=== PATIENT | female | born 1990 | race Caucasian/White ===

== ENCOUNTER 2017-11-13 14:08 | Emergency (ER) | payer SELFPAY ==
[~2017-11-13] VITALS: Ht 172.7 cm; Wt 61.4 kg
[2017-11-13 14:15] VITALS: BP 112/58; TEMP 98.7
[2017-11-13 15:05] VITALS: PULSE 69
== END 2017-11-13 15:06 | disposition home or self-care (01) ==
LOC: COL.ER 14:08
DX: S99.912A Unspecified injury of left ankle, initial encounter (principal); S93.402A Sprain of unspecified ligament of left ankle, initial encounter; X50.1XXA Overexertion from prolonged static or awkward postures, initial encounter; Y99.0 Civilian activity done for income or pay

== ENCOUNTER 2021-05-05 17:08 | Emergency (ER) | payer OTHER ==
[~2021-05-05] VITALS: Ht 167.6 cm; Wt 77.3 kg
[2021-05-05 17:17] VITALS: TEMP 97.6
[2021-05-05 18:19] LABS: HEMOGLOBIN 10.7 g/dl (12.5-16.0); MEAN CELL VOLUME 87 fl (80.0-100.0); MEAN CORPUSCULAR HEMOGLOBIN 29 pg (27-31); MEAN CORPUSCULAR HGB CONC 33 g/dl (33.0-37.0); MEAN PLATELET VOLUME 11.2 fl (7.4-10.4); PLATELET COUNT 249 K/mm3 (130-400); RED BLOOD COUNT 3.75 M/mm3 (4.10-5.30); REDCELL DISTRIBUTION WIDTH-CV 13.5 % (11.5-14.5)
[2021-05-05 18:21] LABS: HEMATOCRIT 32.6 % (37.0-47.0)
[2021-05-05 18:33] LABS: ALANINE AMINOTRANSFERASE 338 U/L (0-55); ALBUMIN 3.4 gm/dL (3.5-5.0); ALCOHOL(ethanol),MEDICAL < 10 mg/dL (0-10); ALKALINE PHOSPHATASE 53 U/L (40-150); ANION GAP 6 mmol/L (7-16); AST,SGOT 383 U/L (5-34); BILIRUBIN,TOTAL 0.3 mg/dL (0.2-1.2); BLOOD UREA NITROGEN 10 mg/dL (7-19); CALCIUM 7.7 mg/dL (8.4-10.2); CARBON DIOXIDE 22 mmol/L (22-29); CHLORIDE 112 mmol/L (98-107); CREATININE, serum 0.92 mg/dL (0.57-1.11); GLUCOSE 166 mg/dL (70-99); SODIUM 140 mmol/L (136-145); TOTAL PROTEIN 5.8 gm/dL (6.2-8.1)
[2021-05-05 18:35] VITALS: BP 115/74; PULSE 105
[2021-05-05 18:35] LABS: BAND 7 % (0-10); HYPOCHROMIA 1+; LYMPHOCYTE 17 % (20.0-51.0); NEUTROPHILS 75 % (42.0-75.2); PLATELET ESTIMATE NORMAL (NORMAL)
== END 2021-05-05 18:35 | disposition short-term general hospital (02) ==
LOC: COL.ER 17:08
PROVIDERS: Personal Emergency Response Attendant
DX: S93.04XA Dislocation of right ankle joint, initial encounter (principal); S72.001A Fracture of unspecified part of neck of right femur, initial encounter for closed fracture; S42.402A Unspecified fracture of lower end of left humerus, initial encounter for closed fracture; S06.9X9A Unspecified intracranial injury with loss of consciousness of unspecified duration, initial encounter; Z20.822 Contact with and (suspected) exposure to COVID-19; V29.40XA Motorcycle driver injured in collision with unspecified motor vehicles in traffic accident, initial encounter
CPT/HCPCS: J0690; J2704; J3010; J7030

== ENCOUNTER 2021-05-28 19:33 | Emergency (ER) | payer OTHER ==
[~2021-05-28] VITALS: Ht 172.7 cm; Wt 73.6 kg
[2021-05-28 20:02] VITALS: TEMP 98.6
[2021-05-28 21:55] LABS: BASO % 0.6 % (0.0-2.0); EOS # 0.1 K/mm3 (0.0-0.7); EOS % 1.3 % (0.0-4.0); GRAN # 3.6 K/mm3 (1.4-6.5); GRAN % 51.9 % (42.2-75.2); HEMATOCRIT 38.9 % (37.0-47.0); HEMOGLOBIN 12.7 g/dl (12.5-16.0); LYMPH # 2.6 K/mm3 (1.2-3.4); LYMPH % 37.4 % (20.0-51.0); MEAN CELL VOLUME 89 fl (80.0-100.0); MEAN CORPUSCULAR HEMOGLOBIN 29 pg (27-31); MEAN CORPUSCULAR HGB CONC 33 g/dl (33.0-37.0); MONO # 0.6 K/mm3 (0.1-0.6); MONO % 8.5 % (1.7-9.3); PLATELET COUNT 498 K/mm3 (130-400); RED BLOOD COUNT 4.39 M/mm3 (4.10-5.30)
[2021-05-28 22:12] LABS: ALBUMIN 3.7 gm/dL (3.5-5.0); BILIRUBIN,TOTAL 0.3 mg/dL (0.2-1.2); CALCIUM 9.6 mg/dL (8.4-10.2); CREATININE, serum 0.74 mg/dL (0.57-1.11); POTASSIUM 3.8 mmol/L (3.5-4.5); TOTAL PROTEIN 7.3 gm/dL (6.2-8.1)
[2021-05-28 23:19] VITALS: BP 134/86; PULSE 96
== END 2021-05-28 23:19 | disposition home or self-care (01) ==
LOC: COL.ER 19:33
PROVIDERS: Family Medicine
DX: M25.522 Pain in left elbow (principal); R79.1 Abnormal coagulation profile; Z98.890 Other specified postprocedural states; V29.9XXA Motorcycle rider (driver) (passenger) injured in unspecified traffic accident, initial encounter

== ENCOUNTER 2021-06-12 13:06 | Outpatient (RCR) | payer OTHER | END 2021-06-13 | LOC: WSPT | DX: S72.351A Displaced comminuted fracture of shaft of right femur, initial encounter for closed fracture (principal); S53.105A Unspecified dislocation of left ulnohumeral joint, initial encounter ==

== ENCOUNTER 2021-07-11 15:00 | Outpatient (RCR) | payer OTHER | END 2021-07-13 | disposition home or self-care (01) | LOC: WSOT | DX: S72.351D Displaced comminuted fracture of shaft of right femur, subsequent encounter for closed fracture with routine healing (principal); S53.105D Unspecified dislocation of left ulnohumeral joint, subsequent encounter; X58.XXXD Exposure to other specified factors, subsequent encounter ==

== ENCOUNTER → 2021-08-13 | Outpatient (RCR) | payer OTHER | END | disposition home or self-care (01) | LOC: WSOT → WSPT 07-18 15:00 → WSOT 07-23 15:00 → WSPT 07-25 15:00 → WSOT 14:15 | DX: S53.105D Unspecified dislocation of left ulnohumeral joint, subsequent encounter (principal); S72.351D Displaced comminuted fracture of shaft of right femur, subsequent encounter for closed fracture with routine healing; X58.XXXD Exposure to other specified factors, subsequent encounter ==

== ENCOUNTER → 2021-09-12 | Outpatient (RCR) | payer OTHER | END | disposition home or self-care (01) | LOC: WSPT → WSOT 08-15 14:43 → WSPT 08-26 12:45 → WSOT 09-10 13:15 → WSPT 15:00 | DX: S53.105D Unspecified dislocation of left ulnohumeral joint, subsequent encounter (principal); S72.351D Displaced comminuted fracture of shaft of right femur, subsequent encounter for closed fracture with routine healing; X58.XXXD Exposure to other specified factors, subsequent encounter ==

== ENCOUNTER 2021-10-08 14:15 | Outpatient (RCR) | payer OTHER | END 2021-10-13 | disposition home or self-care (01) | LOC: WSPT | DX: S72.351D Displaced comminuted fracture of shaft of right femur, subsequent encounter for closed fracture with routine healing (principal); S53.105D Unspecified dislocation of left ulnohumeral joint, subsequent encounter; X58.XXXD Exposure to other specified factors, subsequent encounter ==

== ENCOUNTER 2021-11-12 14:15 | Outpatient (RCR) | payer OTHER | END 2021-11-13 | disposition home or self-care (01) | LOC: WSPT | DX: S72.351D Displaced comminuted fracture of shaft of right femur, subsequent encounter for closed fracture with routine healing (principal); S53.105D Unspecified dislocation of left ulnohumeral joint, subsequent encounter; X58.XXXD Exposure to other specified factors, subsequent encounter ==

== ENCOUNTER 2022-03-18 11:39 | Emergency (ER) | payer BC ==
[~2022-03-18] VITALS: Ht 172.7 cm; Wt 75.0 kg
[2022-03-18 11:45] VITALS: TEMP 97.8
[2022-03-18 12:16] LABS: COLLECTION METHOD CLEAN CATCH
[2022-03-18 12:31] LABS: URINE APPEARANCE Clear (CLEAR/HAZY); URINE COLOR Yellow (YELLOW)
[2022-03-18 12:32] LABS: URINE BLOOD Negative (NEGATIVE); URINE GLUCOSE Negative (NEGATIVE); URINE KETONE Negative (NEGATIVE); URINE NITRATE Negative (NEGATIVE); URINE PROTEIN(semi-quant) Negative (NEGATIVE); URINE UROBILINOGEN 0.2 E.U/dL (0.2-1.0)
[2022-03-18 12:37] LABS: URINE BACTERIA None Seen /hpf (NONE SEEN); URINE RBC 0-2 /hpf (0-2)
[2022-03-18] MEDS ORDERED: INDOCIN 25MG CA25 MG PO ×3 (13:33→13:39)
[2022-03-18] MEDS ORDERED: ROBAXIN 50500 MG/TAB PO ×3 (13:33→13:39)
[2022-03-18 15:30] VITALS: BP 143/76; PULSE 65
== END 2022-03-18 15:30 ==
LOC: COL.ER 11:39
PROVIDERS: Emergency Medicine
DX: M54.50 Low back pain, unspecified (principal); Z28.310 Unvaccinated for COVID-19

== ENCOUNTER → 2022-04-15 | Outpatient (RCR) | payer BC ==
[~2022-04-15] MED LIST: INDOCIN 25MG CA25 MG PO; ROBAXIN 50500 MG/TAB PO
== END | disposition home or self-care (01) ==
LOC: WSOT
DX: M24.522 Contracture, left elbow (principal)

== ENCOUNTER → 2022-04-15 | Outpatient (RCR) | payer BC | END | disposition home or self-care (01) | LOC: WSPT | DX: M54.9 Dorsalgia, unspecified (principal) ==